=== PATIENT | female | born 1995 | race Caucasian/White ===

== ENCOUNTER 2016-03-15 12:30 | Inpatient (IN) | payer OTHER ==
[~2016-03-15] VITALS: Ht 149.9 cm; Wt 59.9 kg
[~2016-03-15 12:30] MED LIST: HYDR-656 PO
[2016-03-15] MEDS ORDERED: Oxytocin 30 Units/500 mL LR 30 UNITS in IV Premix 1 EACH IV PRN ×2 (15:35→21:55)
[2016-03-15] MEDS ORDERED: fentaNYL-PF 50 mCg/mL 2 mL Inj IVPUSH PRN (15:35)
[2016-03-15] MEDS ORDERED: Oxytocin 10 Unit/mL Inj IM PRN ×2 (15:35→21:55)
[2016-03-15] MEDS ORDERED: Ondansetron 2 mg/mL 2 mL Inj IVPUSH PRN (15:35)
[2016-03-15] MEDS ORDERED: Methylergonovine 0.2 mg/mL Inj IM PRN ×2 (15:35→21:55)
[2016-03-15] MEDS ORDERED: Hemorrhage Kit, Post Partum XX ONE ×2 (15:35→21:55)
[2016-03-15] MEDS ORDERED: Carboprost 250 mCg/mL Inj IM PRN ×2 (15:35→21:55)
[2016-03-15] MEDS ORDERED: Sodium Chloride LOK Flush 10 mL Syringe IVFLUSH PRN (15:35)
[2016-03-15] MEDS ORDERED: Phenylephrine/NS-PF 100 mCg/mL 5 mL Syringe IVPUSH ONE (15:45)
--- NOTE | 2016-03-15 16:07 | PCM.HPOB ---
Subjective Date of Service: Mar 15, 2016 Referring Provider: Admitting Physician: David Villalpando MD Primary Care Physician: [place] Attending Physician: David Villalpando MD Chief Complaint Active labor History of Present History of Present Illness 20 year old female . Presents to [facility] in active labor. EVON by LMP 2016. No US EVON done. On arrival to [facility] Pt at 3cm dilation, 80% effacement and at 0 station. Pt had very late entry into care, Jan 2016. GBS negative. O positive. Pt went from 3cm to 4cm at admission. membranes had not ruptured at time of dictation. OB History: Past Medical History Hx Tobacco Use: No Hx Alcohol Use: No Genetic Screening/Counseling Genetic Screening/Counseling: Negative Review of Systems Constitutional: Y: Chills, Fever Cardiovascular: Denies: Chest Pain Gastrointestinal: Reports: Abdominal Pain, Diarrhea, Nausea, Vomiting Medications Home medications Albuterol, Allergy Coded Allergies: No Known Allergies (Unverified Allergy, Unknown, 09/16/14) Exam Vital Signs BP 118/74, HR 84, RR 17, temp 36.8 Exam FHR 140, category 1 tracing HEENT: Atraumatic Lungs: Clear to Auscultation, Normal Air Movement Heart: Exam Unremarkable, Regular Rate/Rhythm Abdomen: Gravid Extremities: No Edema Neurological/Psychiatric: Alert, Oriented X3 Neuro: Grossly Neurologically Intact Labs/Diagnostics Maternal Blood Type: O (positive) Antibody Screen: negative Group B Strep Results: Negative Rubella: Non-Immune Additional Information varicella non immune, RPR NR, HBV antigen negative, HIV NR, Unknown Chlamydia, gonorrhea, HCV status OB Intrapartum Assessment/Plan Assessment 20 y/o female in active labor with limited care. Problems: (1) Active labor at term Plan: Expectant management, anticipate vaginal delivery today Status: Resolved ICD Code: [id number] Attending Statement The patient was seen and examined together with Dr. Jose Angel Varner DO on 2016 and I agree with the history, exam and plan as outlined in the note above. JOSE ANGEL VARNER DO Mar 15, 2016 16:07 David Villalpando MD Mar 30, 2016 07:53
[2016-03-15 16:15] LABS: Mean Corpuscular Hemoglobin 25.9 pg (27.0-35.0)
[2016-03-15] MEDS: Lactated Ringer's 1,000 ML IV PRN ×2 (17:03→18:02)
[2016-03-15] MEDS ORDERED: fentaNYL 2 mCg/mL-Bupivicaine 0.125% 100 mL Premix EPIDURAL ONE (17:10)
[2016-03-15] MEDS ORDERED: fentaNYL 2 mCg/mL-Bupiv 0.125% 100 ML EPIDURAL SCH (18:00)
[2016-03-15] MEDS ORDERED: EPHEDrine Sulfate 50 mg/mL Inj IVPUSH PRN (18:00)
[2016-03-15] MEDS ORDERED: Atropine 1 mg/10 mL (Code) Syringe IVPUSH PRN (18:00)
[2016-03-15] MEDS ORDERED: Lactated Ringer's 500 ML IV ONE (18:00)
[2016-03-15] MEDS: Lactated Ringer's 1,000 ML IV SCH ×2 (18:00→21:52)
--- NOTE | 2016-03-15 18:00 | PCM.HPANE ---
Patient Data Date of Service: Mar 15, 2016 ([id number]) Surgeon Admitting Provider:David Villalpando MD Attending Provider:David Villalpando MD Primary Care Physician:Jason Other Provider:Rob Carroll Anesthesia Reason for Visit LABOR LABOR Ht/WT & BMI Body Mass Index Allergies Coded Allergies: No Known Allergies (Unverified Allergy, Unknown, 09/16/14) Medications Active Scripts hydrOXYzine Hcl (HydrOXYzine Hcl)25 Mg [id number] Mg PO TID PRN For Itching 10 Days Ref 0 Prov:Lloyd Osuna DO 09/16/14 History Cardiovascular History: Denies:: Congestive Heart Failure Hx Surgeries?: No Hx Alcohol Use: NoHx Substance Use: No Smoking Status: Never Smoker Stop/Bang Risk Assessment Category Category 1A: Patient has history of documented sleep apnea, and HAS NOT received any narcotic, sedative or anesthesia administration during this stay. Category 1B: Patient has history of documented sleep apnea, and HAS received any narcotic , sedative or anesthesia administration during this stay Category 2: Patient has SUSPECTED Obstructive Sleep Apnea, and HAS received any narcotic , sedative or anesthesia administration during this stay. Category 3: Patient has SUSPECTED Obstructive Sleep Apnea and HAS NOT received narcotic, sedative or anesthesia administration during this stay. Category 4: Outpatient in Procedural Areas with known sleep apnea or who screen positive for High Risk via the STOP/BANG questionnaire. Exam Exam General Appearance: Alert, Oriented X3, Cooperative, Severe Distress (labor pain) HEENT/AIRWAY: MP 2, Neck Movement (FROM), Mouth Opening (3 FBMO) Lungs: Clear to Auscultation, Normal Air Movement Heart: Exam Unremarkable, Regular Rate/Rhythm, No Murmurs/Rubs/Gallops Meds/Labs/Diagnostics Labs Test 03/15/16 15:40 03/15/16 16:11 Urine Opiates Screen Negative Urine Methadone Screen Negative Urine Barbiturates Screen Negative Urine Amphetamines Screen Negative Urine Benzodiazepines Screen Negative Urine Cocaine Metabolite Screen Negative Urine Cannabinoids Screen Positive White Blood Count 22.1th/mm3 (3.8-10.1) Red Blood Count 4.05mil/mm3 (3.90-5.20) Hemoglobin 10.5g/dL (12.0-15.6) Hematocrit 32.4% (35.0-46.0) Mean Corpuscular Volume 80.0fL (81-100) Mean Corpuscular Hemoglobin 25.9pg (27.0-35.0) Mean Corpuscular Hemoglobin Concent 32.4% (32.0-37.0) Red Cell Distribution Width 15.3% (12.3-15.4) Platelet Count 399bil/L (150-400) Plan Impression Patient chart reviewed, patient interviewed and anesthestic plan with risks, benefits, and alternatives discussed, and informed consent obtained. NPO Status: L&D protocol ASA Physical Status: ASA2 Mod Systemic Disease Anesthetic Plan: Epidural Bene/Risks/Altern/Consents: Yes HP Complete Prior to Induction: Yes Lei Abreu MD Mar 15, 2016 18:00
[2016-03-15] MEDS ORDERED: Albuterol 2.5 mg/3 mL Inhalation Solution NEB PRN (20:00)
[2016-03-15] MEDS ORDERED: LANOlin HPA 7 Gm Ointment TOPICAL PRN (21:55)
[2016-03-15] MEDS ORDERED: Witch Hazel-Glycerin Pads TOPICAL PRN (21:55)
[2016-03-15] MEDS ORDERED: Benzocaine (Dermoplast) 20% 60 Gm Spray TOPICAL PRN (21:55)
--- NOTE | 2016-03-15 23:12 | OP ---
[address] [address] OPERATIVE REPORT PATIENT: BROOKLYNN TORRES : 1995 MR#: [id number] ADMIT: 03/15/2016 JOB ID: [id number] DATE OF SURGERY: 03/15/2016 PREOPERATIVE DIAGNOSIS(ES): A 20-year-old, 1, para 0, admitted at 40 weeks and 1 day for active labor, progressed to fully dilated, +3 station. POSTOPERATIVE DIAGNOSIS(ES): A 20-year-old, 1, para 0, admitted at 40 weeks and 1 day for active labor, progressed to fully dilated, +3 station. PROCEDURE: Spontaneous vaginal delivery. SURGEON: Trish Zhao MD. FINDINGS: Single viable female with APGARS 8/9, weight of 3244 g. ANESTHESIA: Epidural. ESTIMATED BLOOD LOSS: 200 cc. COMPLICATIONS: 8 minutes prolonged deceleration, robi of 50 beats per minute, and this was resolved by a right mediolateral episiotomy and expedited delivery. DESCRIPTION OF PROCEDURE: The patient started to push efficiently. Infant was noted to be at +4 station and baby started to have a prolonged deceleration that continued for 8 minutes. At that point, right mediolateral episiotomy was discussed with the patient. She consented verbally and the Right medio-lateral episiotomy was cut. Epidural was adequate for pain control. The head was delivered right after cutting the episiotomy in the left occiput anterior position followed by shoulders and the rest of the body. Delayed cord clamping allowed for 60 seconds. placed over mom's chest, the cord clamped and cut. Placenta followed spontaneously. Upon inspection, it was noted to be intact with three-vessel cord centrally inserted. Bimanual exam confirmed firm uterine fundus with no blood clots retrieved. The mediolateral episiotomy was repaired in two-layer fashion with 2-0 Vicryl suture. Epidural was adequate for pain control. No local analgesia was required. The patient tolerated the procedure well. Sponge, needle, and instrument counts were correct x2. Mother and baby recovering in stable condition in labor and delivery room. Dr. Zhao was present and scrubbed for the entire procedure. [facility]ITALKelsie
[2016-03-16] MEDS: Lactated Ringer's 1,000 ML IV SCH ×4 (02:00→13:52)
--- NOTE | 2016-03-16 07:02 | PCM.PNOBPP ---
Subjective Date of Service Mar 16, 2016 Subjective 20 year old female G1P(1now) s/p vaginal delivery which was complicated by a prolonged deceleration requiring an episiotomy with expedited delivery. Lochia: Light Pain Management: PO pain meds Gastrointestinal: Good Appetite, No N/V Postop Activity: Ambulating Independently Group B Strep Results: Negative Rubella: Non-Immune Blood Type: O (positive) Labs Laboratory Tests 03/15/16 16:11: White Blood Count 22.1, Red Blood Count 4.05, Hemoglobin 10.5, Hematocrit 32.4, Mean Corpuscular Volume 80.0, Mean Corpuscular Hemoglobin 25.9, Mean Corpuscular Hemoglobin Concent 32.4, Red Cell Distribution Width 15.3, Platelet Count 399 Exam Vital Signs Vital Signs BP 112/67, HR 72, RR 16, temp 36.8 Vital Signs: VS reviewed, stable Exam Abdomen: Fundus firm : Voiding without difficulty Lungs: Normal Air Movement, Wheezes Heart: Exam Unremarkable, Regular Rate/Rhythm General: Alert, Oriented X3, Cooperative OB Post Assessment/Plan Assessment Pt delivered healthy with episiotomy. Mother and baby doing well. Problems: (1) Active labor at term Plan: Continue supportive care. pain management with Percocet. apprenticeship consultant to see Pt today. Anticipate discharge to home today. Status: Resolved ICD Code: [id number] Pain Evaluation: Adequate Pain Control Attending Statement The patient was seen and examined and I agree with the history, exam and plan as outlined in the note above. [place] VARNER DO Mar 16, 2016 06:34 Ene Loomis MD Mar 17, 2016 22:34
[2016-03-16 07:47] LABS: Mean Corpuscular Hemoglobin 26.4 pg (27.0-35.0); Mean Corpuscular Volume 80.8 fL (81-100)
--- NOTE | 2016-03-16 08:55 | NUR ---
Called ED PROGRAM OFFICER and informed about referral. Spoke with bore mill operator for plastic on Family and mother is ok to be seen today.
[2016-03-16] MEDS: oxyCODONE-Acetamin 5-325 mg Tablet PO PRN ×2 (09:03→15:47)
[2016-03-16] MEDS: Ascorbic Acid 500 mg Tablet PO SCH ×2 (09:04→17:51)
--- NOTE | 2016-03-16 09:24 | PCM.DC.OB ---
Obstetrical Discharge Summary Date of Service Mar 16, 2016 Date of hospital admission Mar 15, 2016 at 15:30 Date of Discharge: Mar 16, 2016 Providers Admitting Physician: David Villalpando MD Primary Care Physician: Jason Attending Physician: David Villalpando MD Problems: (1) (spontaneous vaginal delivery) Plan: spontaneous vaginal delivery with episotomy. Mother and baby doing well. Discharge to home in stable condition. Status: Resolved ICD Code: O80 Invasive procedures Right mediolateral episiotomy Date of Procedure: Mar 15, 2016 Brief History and Physical: 20 year old female presented to [facility] in active Labor on 03/15/16. Her EVON by LMP was 03/14/2016. Pt had very late entry into care. Blood type O positive and GBS negative. VS: 112/67, HR 72, RR 16, temp 36.8 : Voiding without difficulty ABD: appropriately tender. Fundus 2 finger breadths below umbilicus. Lungs: Normal Air Movement, Wheezes Heart: Exam Unremarkable, Regular Rate/Rhythm General: Alert, Oriented X3, Cooperative Hospital Course: Pt presented to [facility] at 3cm dialation, 80% effacment, and at 0 station. Pt received fentanyl with some effect, then epidural for labor pains. Labor progressed with Pt pushed effectively however had an 8 minute prolonged deceleration with a robi of 50 beats per minute. A right mediolateral episiotomy with expedited delivery thereafter. Pt tolerated procedure well. Mother and baby recovered well post procedure. Pt has adequate pain control, ambulating independently, passing urine without difficulty, good appetite. hydrOXYzine Hcl (HydrOXYzine Hcl) 25 Mg Tablet 25 MG PO TID PRN PRN For Itching Prescribed by: ЮЛИЯ GUPTA, DO Discharge Medications: Ibuprofen, percocet, iron, vit C, colace Disposition Discharge to home Follow-up plan [facility] up [facility] 4-6 weeks Discharge Diet: No restrictions Discharge Activity-General: Pelvic Rest for 6 weeks, Try not to overdue, Be up and about, Balance rest and activity, Activity as pain allows, Activity as energy allows Patient instructions Be sure to follow up in 6 weeks at [facility]. You have been given a prescription for ibuprofen to take as needed for pain. You have been given a prescription for percocet. This medication has tylenol in it. Please do not take this medication with tylenol, You have also been given a prescription for iron and Vitamin C supplement. Iron can give you constipation so you have also been given a prescription for docusate to keep you regular. Pelvic rest for 6 weeks (nothing per vagina including intercourse, tampons) If you have a fever greater than 100.4, please call [facility]. There is always someone customer solutions supervisor to talk to. If you have an increase in bleeding, call [facility]. If you notice redness or swelling at the site of your incision or any fluid drainage or any other signs of infection please see [facility] or go the the urgent care or ER. If you have a lot of bleeding suddenly, especially if you have symptoms of dizziness & weakness with it, get emergency help. When you see [facility] in two weeks, you will be informed of the results of all the labs. If you start experiencing extreme depression, especially if you feel that you are a danger to yourself or your family, seek emergency help. You have been through a lot -- BE SURE TO TAKE CARE OF YOURSELF. [place] VARNER DO Mar 16, 2016 08:35
--- NOTE | 2016-03-16 09:27 | PCM.DIOB ---
Obstetrical Disch Instruction Date of Service: Mar 16, 2016 Dates of Hospitalization Date of Hospital Admission Mar 15, 2016 at 15:30 Providers Admitting Physician: David Villalpando MD Primary Care Physician: Jason Attending Physician: David Villalpando MD Discharge Diagnosis Problems: (1) (spontaneous vaginal delivery) Plan: Mother and baby doing well, discharge to home in stable condition. Status: Resolved ICD Code: O80 Diet Discharge Diet: No restrictions Activity Discharge Activity-General: Pelvic Rest for 6 weeks, Try not to overdue, Be up and about, Balance rest and activity, Activity as pain allows, Activity as energy allows, No lifting >15 pounds for 2 weeks Dressing and Incisional Care Dressing Care: Keep dressing clean, dry & intact Hygiene: May shower, Perineal care Additional Instructions Discharge Instructions Be sure to follow up in [address] [facility]. You have been given a prescription for ibuprofen to take as needed for pain. You have been given a prescription for percocet. This medication has Tylenol in it. Please do not take this medication with tylenol, You have also been given a prescription for iron and Vitamin C supplement. Iron and percocet can give you constipation so you have also been given a prescription for docusate to keep you regular. You have also been given a prescription for Zofran, you may take this as needed for your nausea Pelvic rest for 6 weeks (nothing per vagina including intercourse, tampons) If you have a fever greater than 100.4, please call [facility]. There is always someone promotion manager to talk to. If you have an increase in bleeding, call [facility]. If you notice redness or swelling at the site of your incision or any fluid drainage or any other signs of infection please see [facility] or go the the urgent care or ER. If you have a lot of bleeding suddenly, especially if you have symptoms of dizziness & weakness with it, get emergency help. When you see [facility] in two weeks, you will be informed of the results of all the labs. If you start experiencing extreme depression, especially if you feel that you are a danger to yourself or your family, seek emergency help. You have been through a lot -- BE SURE TO TAKE CARE OF YOURSELF. Follow Up Plan Follow Up Plan Follow up in [facility] in 4-6 weeks Follow-up appointment: Weeks (4-6) Call your provider for: Fever or Chills, Shortness of breath, Heavy vaginal bleeding, Heavy bleeding, Epigastric pain, Excessive constipation, Vaginal discomfort, Red painful breasts INDIA VARNER DO Mar 16, 2016 09:27
[2016-03-16] MEDS ORDERED: FERR-74 PO (09:52)
[2016-03-16] MEDS ORDERED: IBUP-1827 PO (09:52)
[2016-03-16] MEDS ORDERED: DOCU-41 PO (09:52)
[2016-03-16] MEDS ORDERED: Ascorbic Acid PO (09:52)
[2016-03-16] MEDS ORDERED: OXYC1TAB24 PO (09:52)
[2016-03-16] MEDS ORDERED: ONDA4VIA27 IVPUSH (09:52)
[2016-03-16] MEDS ORDERED: Measles-Mumps-Rubella Vaccine 0.5 mL Inj SUBQ ONE (11:05)
--- NOTE | 2016-03-16 15:27 | NUR ---
Social work- Family center assessment 03/16/16 MOB and FOJamal name: Kathy Hardy Baby's name: Bulmaro Hardy Reason for REFUELING RAMP SUPERVISOR consult: Marijuana use during , limited care Current living situation: IVETH reports that she lives with her father, Shine Hardy, and her step mother in [place]. MEGHANN was recently incarcerated and will likely be in [facility] for 5 years. MOB denies any assault or domestic assault charges in relation to FOB's incarceration. Previous children: This is IVETH's first child. Substance use history: MOB report marijuana use in but denies any other drug or alcohol use. UDS is positive for marijuana only. RN reports that MOB initially lied about her use on admission. Mental health history: RN reports history of PTSD and anxiety, which MOB confirms, but denies any major needs and denies any history of counseling or treatment. MOB reports her boyfriend committed suicide 2 years ago. Source of income/state assistance: IVETH is unemployed currently. MOB reports that maternal father and step-mother assist with MOB financially. IVETH is also enrolled with [facility] and [facility]. DV/abuse history: MOB denies any current or previous history of abuse. Supports: IVETH reports that maternal family and paternal family are both quite supportive of her. Paternal family live in [place] [facility] and Maternal family live with MOB in [place]. Assessment/disposition: REFUELING RAMP SUPERVISOR referral received for marijuana use and limited care. RN has no additional concerns with MOB and baby bonding or caring. REFUELING RAMP SUPERVISOR discussed with MOB care, to which MOB reported that she changed clinics during which made it difficult to be consistent, but she believes there may be records of her visits that we have not yet received. RN is unaware of any visits aside from the 2-3 visits we have record of. MOB acknowledges marijuana use in to this REFUELING RAMP SUPERVISOR however denied it to previous RN. Aside from these concerns, MOB has been appropriate with care and has ample state assistance and social support at discharge. REFUELING RAMP SUPERVISOR discussed information only CPS report with mob and it was completed with Earnestine everett through CPS intake. FIDE Bean Addendum: 03/16/16 at 1527 by ANAHY HERNANDEZ SS Amended: Links added.
[2016-03-16 16:53] VITALS: BP 112/79; PULSE 82; RESP 18
== END 2016-03-16 17:55 | disposition home or self-care (01) | DRG 560 ==
LOC: FBCO 12:30 → FBC 15:30
PROVIDERS: ADMIT Obstetrics & Gynecology; ATTEND Obstetrics & Gynecology
PROC: 10E0XZZ Delivery of Products of Conception, External Approach (ICD-10-PCS; principal; 2016-03-15)
PROC: 0W8NXZZ Division of Female Perineum, External Approach (ICD-10-PCS; 2016-03-15)
DX: O76 Abnormality in fetal heart rate and rhythm complicating labor and delivery (principal); Z3A.40 40 weeks gestation of pregnancy; Z37.0 Single live birth